=== PATIENT | female | born 1960 | race Caucasian/White ===

== ENCOUNTER → 2018-08-14 | Outpatient (CLI) | payer BC ==
--- NOTE | 2018-08-15 16:45 | CT ---
EXAM DESCRIPTION: Chest w/Contrast : Computed Tomography. CLINICAL HISTORY: 58 years Female R91.8 ABNORMAL FINAL LUNG FIELD COMPARISON: None. TECHNIQUE: Spiral-axial scans at 0 mm intervals through the lungs and thorax with IV contrast. 2.5 x 5.0 mm lung algorithm axial reconstructions. Coronal and sagittal 2.0 Mm reconstructions. No adverse reactions. Total Exam DLP: 556.7 mGy-cm. This exam was performed according to our departmental dose-optimization program which includes automated exposure control, adjustment of the mA and/or kV according to patient size and/or use of iterative reconstruction technique; to reduce radiation dose to as low as reasonably achievable (ALARA). Nodule measurements under 10 mm are given as mean value of 3 axes diameters. FINDINGS: Lungs and large airways: No abnormal nodules or masses. No focal infiltrates. Pleural spaces: Thickening of the fissure in the right upper lobe. Thickening of the inferior major fissure. No pleural effusion or pneumothorax. Mediastinum and [place]: No enlarged lymph nodes or soft tissue masses. Great vessels and Heart: Small calcification in the origin of the left subclavian artery. Soft tissues of neck base, axillae, and chest wall: Evaluation limited due to lack of IV contrast. Upper abdomen: No fluid or free air in the included peritoneal space. Normal size and enhancement of the adrenal glands spleen, included pancreas liver and stomach. Osseous structures: Minimal spondylosis. No blastic or lytic lesions. IMPRESSION: 1. Minimal thickening of some of the fissures. No pleural effusion or pneumothorax. No focal infiltrate or abnormal nodule. No mass. No pleural effusion or pneumothorax. 2. No enlarged lymph nodes or soft tissue masses. Electronically signed by: Juan Turner MD 08/15/2018 4:43 PM [facility]
== END ==
LOC: CT 09:18
PROVIDERS: ATTEND Nurse Practitioner
DX: R91.8 Other nonspecific abnormal finding of lung field (principal)

== ENCOUNTER 2019-01-19 05:38 | Day surgery (SDC) | payer BC ==
--- NOTE | 2019-01-15 09:30 | HP ---
CHIEF COMPLAINT: Right knee pain. HISTORY OF PRESENT ILLNESS: Betty is a 58-year-old female with a history of pain in the knee that is secondary to some prominent hardware from previous patella fracture. She has had some irritation over the hardware and because of the remote nature of the fracture is now requesting the hardware be removed. After discussing the risks, benefits and alternatives to that, she has given informed consent for that. PAST SURGICAL HISTORY: 1. ORIF of patella. MEDICATIONS: 1. Depakote. 2. Neurontin. 3. Imitrex. 4. Mobic. ALLERGIES: PENICILLIN. CODE STATUS: Full code. IMMUNIZATIONS: Up to date. SOCIAL HISTORY: The patient does not use any illicit drugs. She does smoke and does drink on occasion. FAMILY HISTORY: None pertinent to today's complaint. REVIEW OF SYSTEMS: Negative except as indicated in the History of Present Illness. PHYSICAL EXAMINATION: VITAL SIGNS: Blood pressure 115/70. Pulse 85. Height 5'8". Weight 218 pounds. MENTAL STATUS: The patient is awake, alert, and is able to give a good history and participate in the physical. The patient is oriented to person, place and time. SKIN: Normal tone and turgor. HEENT: Normocephalic, atraumatic. Pupils equal, round and reactive. Mucosal membranes are moist. NECK: Normal range of motion. No thyromegaly, no lymphadenopathy. CHEST: Normal respiratory excursion. CARDIAC: Regular rate and rhythm. No murmurs, rubs or gallops. MUSCULOSKELETAL: Bilateral upper extremities show full active range of motion without pain. She has intact sensation. They are warm and well perfused. She has no deformity. Strength is 5/5. There is no crepitus. The left lower extremity shows full range of motion in the ankle, hip and knee. She does have some pain with range of motion of the knee. Sensation is intact. There is no deformity. It is warm and well perfused. There is no malalignment. The right knee shows a well-healed wound anteriorly. She has easily palpable hardware that causes pain to direct palpation. Otherwise, she maintains full extension. Flexion is to at least 120 degrees. She has normal gait. IMAGING: X-rays show healed patella fracture with prominent hardware. ASSESSMENT: 1. Symptomatic hardware. PLAN: The plan at this point is for hardware removal. We have discussed the risks, benefits, and alternatives to that and the patient has given informed consent. #[id number] [facility]
[2019-01-19] MEDS ORDERED: LACTATED RINGERS 1,000 ML ONE (05:45)
[2019-01-19] MEDS ORDERED: ceFAZolin SODIUM 1 GM VIAL ONE (06:29)
[2019-01-19] MEDS ORDERED: BUPIVACAINE 0.5% 30 ML VIAL INJ ONE (06:30)
[2019-01-19] MEDS ORDERED: BUPIVACAINE LIPOSOME 13.3 MG/ML VIAL INJ ONE (06:30)
[2019-01-19] MEDS ORDERED: VANCOMYCIN HCL INJ 1,000 MG VIAL IVPB ONE (06:30)
[2019-01-19] MEDS ORDERED: HYDROmorphone HCL INJ 2 MG/ML VIAL ONE (06:41)
[2019-01-19] MEDS ORDERED: levoFLOXacin 750MG IV 0 ML IVPB ONE (06:41)
[2019-01-19] MEDS ORDERED: MIDAZOLAM INJ 5 MG/5 ML VIAL ONE (06:42)
[2019-01-19] MEDS ORDERED: SODIUM CHL 0.9% 100ML MINI-BAG 100 ML IVPB ONE (06:50)
[2019-01-19] MEDS: ceFAZolin SODIUM 1 GM VIAL ONE ×4 (06:50→08:00)
[2019-01-19] MEDS ORDERED: PROPOFOL 200 MG/20 ML VIAL IV ONE (07:00)
[2019-01-19] MEDS ORDERED: raNITIdine HCL INJ 25 MG/ML VIAL ONE (07:00)
[2019-01-19] MEDS ORDERED: diphenhydrAMINE HCL 50 MG/ML VIAL ONE (07:00)
[2019-01-19] MEDS ORDERED: METOCLOPRAMIDE HCL INJ 10 MG/2 ML VIAL ONE (07:00)
[2019-01-19] MEDS ORDERED: LIDOCAINE 1% 10 ML VIAL INJ ONE (07:00)
[2019-01-19] MEDS ORDERED: DEXAMETHASONE INJ 10 MG/ML VIAL ONE (07:00)
[2019-01-19] MEDS ORDERED: KETAMINE HCL 100 MG/ML VIAL ONE (07:28)
[2019-01-19] MEDS ORDERED: LACTATED RINGERS 1,000 ML IVS ONE (08:28)
[2019-01-19 08:58] VITALS: TEMP 96.5
[2019-01-19 11:21] VITALS: BP 128/92; O2SAT 93
--- NOTE | 2019-01-19 12:17 | RAD ---
Findings/ impression: One intraoperative fluoroscopic images of the patella. Dose: Not provided Time: Five seconds Electronically signed by: Juanjose Eduardo MD 01/19/2019 12:15 PM CDT
--- NOTE | 2019-01-21 08:18 | OP ---
DATE OF PROCEDURE: 01/19/19 PREOPERATIVE DIAGNOSIS: 1. Symptomatic hardware of the right ankle. POSTOPERATIVE DIAGNOSIS: 1. Symptomatic hardware of right ankle. PROCEDURE: 1. Removal of hardware. SURGEON: Reginaldo Shine MD. ROAD MACHINE RUNNER: Juan Morrell CST, SA-C. ANESTHESIA: General anesthesia. COMPLICATIONS: None. FINDINGS: Symptomatic hardware with healed fracture. INDICATION: Betty has a history of pain in the knee secondary to hardware that was placed for fracture purposes. After healing of the fracture, we talked about options and she elected to undergo removal of the hardware. After discussing the risks, benefits and alternatives to that, she gave informed for that. PROCEDURE: The patient was brought to the Operating Room and placed in supine position. General anesthesia was induced. The patient's leg was sterilely prepped and draped. An incision was made in line with her previous incision. Dissection was carried down to the hardware and the hardware was removed. Fluoroscopic imaging was used to ensure complete removal of all hardware. Following that, the wound was very thoroughly irrigated and closed with a combination of running and interrupted subcuticular stitches. Sterile dressings were placed. The patient was awoken from anesthesia and taken to Recovery. POSTOPERATIVE PLAN: She will be weightbearing as tolerated and followup with us in 2 days. #[id number] [facility]
== END 2019-01-19 09:50 | disposition home or self-care (01) ==
LOC: AMB 05:38
PROVIDERS: ATTEND Orthopaedic Surgery
DX: T84.84XD Pain due to internal orthopedic prosthetic devices, implants and grafts, subsequent encounter (principal); F17.200 Nicotine dependence, unspecified, uncomplicated; Z88.0 Allergy status to penicillin; Z88.5 Allergy status to narcotic agent; Z79.899 Other long term (current) drug therapy
CPT/HCPCS: 01480; 20680; 76000; 80307; J0690; J1100; J1170; J1200; J2250; J2765; J2780; J3370; J3490; J7050; J7120

== ENCOUNTER → 2019-06-23 | Outpatient (CLI) | payer BC ==
--- NOTE | 2019-06-23 15:43 | MRI ---
EXAM DESCRIPTION: Knee,Left CLINICAL HISTORY: KNEE EFFUSION, pain and swelling, pain medial side. No known injury. COMPARISON: None Available. TECHNIQUE: MRI of the left knee is performed with multiplanar multi sequence imaging, without intravenous contrast. FINDINGS: Bone and joint: Moderate subchondral bone marrow edema is noted throughout the medial knee compartment (medial femoral condyle and tibial plateau), no definite fracture. Small tricompartmental osteophyte formation. There is severe medial knee compartment osteoarthritis. Large knee joint effusion with mild synovial thickening more pronounced on the medial knee compartment. 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 Grade two chondrosis involves the lateral knee compartment. Grade one chondromalacia involves the patellofemoral compartment. Medial meniscus: Blunting and maceration of the anterior horn and body with nondisplaced tears of the meniscus body and posterior horn and body junction. Mild peripheral extrusion of the meniscus. Lateral meniscus: Intact Anterior cruciate ligament: Intact Posterior cruciate ligament: Intact Medial collateral ligament: Thickening of proximal MCL consistent with chronic sprain. Mild edema along the deep MCL fibers. Lateral collateral ligament: Intact Popliteus tendon: Intact. Mild fluid distention of the popliteus bursa. Biceps femoris tendon: Intact Iliotibial band: Intact Medial and lateral retinaculum: Intact Extensor mechanism: The distal quadriceps tendon is intact. Mild distal patellar tendinosis with thickening and intermediate signal. Soft tissues: No Santiago's cyst. Mild pes anserine bursitis. Nonspecific pretibial soft tissue edema. IMPRESSION: 1. Severe medial knee compartment osteoarthritis with full-thickness cartilage loss and moderate subchondral fissuring and bone marrow edema. 2. Medial meniscus maceration and degenerative tears. 3. Large knee joint effusion. Mild synovitis and joint capsular edema is pronounced at the medial knee compartment. 4. Mild pes anserine bursitis. 5. Chronic MCL sprain. 6. Mild patellar tendinosis. Electronically signed by: Riccardo Manning DO 06/23/2019 3:41 PM [facility]
== END ==
LOC: MRI 07:00
PROVIDERS: ATTEND Nurse Practitioner
DX: M17.12 Unilateral primary osteoarthritis, left knee (principal); S83.412A Sprain of medial collateral ligament of left knee, initial encounter; M70.52 Other bursitis of knee, left knee; M76.52 Patellar tendinitis, left knee; M25.462 Effusion, left knee; R60.0 Localized edema